=== PATIENT | male | born 1970 | race Caucasian/White ===

== ENCOUNTER 2019-03-25 14:35 | Emergency (ER) | payer BC ==
[2019-03-25 15:26] VITALS: BP 146/78
[2019-03-25] MEDS ORDERED: Albuterol 2.5 MG/3 ML NEB.SOL* (0.083%) INH ONE (15:34)
[2019-03-25] MEDS ORDERED: Ipratropium 0.5MG/2.5ML NEB* 0.5 MG/2.5 ML NEB.SOLN INH ONE (15:34)
--- NOTE | 2019-03-25 15:43 | UC ---
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 - History of Current Complaint Chief Complaint: UCGeneralIllness Stated Complaint: CHEST CONGESTION, COUGH Time Seen by Provider: 03/25/19 15:19 Hx Obtained From: Patient Onset/Duration: Gradual Onset, Lasting Days Timing: Constant Severity Initially: Mild Severity Currently: Moderate Pain Intensity: 1 Pain Scale Used: 0-10 Numeric Character: Cough: Productive Aggravating Factors: Exertion, Deep Breaths Alleviating Factors: Nothing Associated Signs And Symptoms: Positive: Fever - ?, Wheezing Related History: Similar Episode/Dx as: - Bronchitis - Allergies/Home Medications Allergies/Adverse Reactions: Allergies Allergy/AdvReac Type Severity Reaction Status Date / Time amoxicillin [From Augmentin] Allergy Abdominal Verified 03/25/19 15:15 Pain, nausea clavulanic acid Allergy Abdominal Verified 03/25/19 15:15 [From Augmentin] Pain, nausea Home Medications: Home Medications Ibuprofen/Pseudoephedrine HCl [Advil Cold & Sinus] 1 tab PO Q4H PRN 03/25/19 [ History Confirmed 03/25/19] PMH/Surg Hx/FS Hx/Imm Hx Previously Healthy: Yes Respiratory History: Bronchitis GI/ History: Kidney Stones - Surgical History Surgical History: Yes Surgery Procedure, Year, and Place: APP--2003. KIDNEY STONE--2003 - Family History Known Family History: Positive: Hypertension - Social History Alcohol Use: Occasionally Alcohol Amount: 1-2x/month Substance Use Type: None Smoking Status (MU): Never Smoked Tobacco Review of Systems All Other Systems Reviewed And Are Negative: Yes Constitutional: Positive: Fever - possible Skin: Positive: Negative Eyes: Positive: Negative ENT: Positive: Negative Respiratory: Positive: Cough Cardiovascular: Positive: Negative Gastrointestinal: Positive: Negative Genitourinary: Positive: Negative Motor: Positive: Negative Neurovascular: Positive: Negative Musculoskeletal: Positive: Negative Neurological: Positive: Negative Psychological: Positive: Negative Is Patient Immunocompromised?: No Physical Exam Triage Information Reviewed: Yes Appearance: Well-Appearing, No Pain Distress, Well-Nourished Vital Signs: Initial Vital Signs Temp 98.2 F 03/25/19 15:20 Pulse 86 03/25/19 15:20 Resp 16 03/25/19 15:20 BP 146/78 05/20/19 15:20 Pulse Ox 98 03/25/19 15:20 Vital Signs Reviewed: Yes Eyes: Positive: Conjunctiva Clear ENT: Positive: Hearing grossly normal, Uvula midline. Negative: Nasal congestion, Nasal drainage, Trismus, Muffled voice, Hoarse voice, Sinus tenderness Dental Exam: Normal Neck: Positive: Supple, Nontender Respiratory: Positive: No respiratory distress, No accessory muscle use, Wheezing, Other: - bronchospastic cough Cardiovascular: Positive: RRR Abdomen Description: Positive: Nontender Bowel Sounds: Positive: Present Musculoskeletal: Positive: ROM Intact, No Edema Neurological: Positive: Alert Psychological Exam: Normal Skin Exam: Normal Diagnostics - Radiology No standard instances Radiology Interpretation Completed By: Radiologist Summary of Radiographic Findings: no infiltrate Re-Evaluation - Re-Evaluation First Eval Re-Evaluation Time: 16:01 Change: Improved - after neb feels much impreved. Better air movement. Still some wheezing Right base Respiratory Course/Dx - Differential Dx/Diagnosis Provider Diagnosis: Acute bronchitis with bronchospasm, Elevated BP without diagnosis of hypertension Discharge - Sign-Out/Discharge Documenting (check all that apply): Patient Departure All imaging exams completed and their final reports reviewed: Yes - Discharge Plan Condition: Improved Disposition: HOME Prescriptions: Azithromycin TAB* [Zithromax TAB*] 250 mg PO DAILY #6 tab predniSONE [Deltasone 20 MG TAB] 40 mg PO DAILY #14 tab Patient Education Materials: Acute Bronchitis (ED), How to Use a Metered-Dose Inhaler and a Spacer (ED) Referrals: No Primary Care Phys,NOPCP [Primary Care Provider] - Additional Instructions: recheck in 4 days if not better you should find a primary care provider and get BP rechecked in 2-12 weeks - Billing Disposition and Condition Condition: IMPROVED Disposition: Home
[2019-03-25] MEDS ORDERED: Albuterol HFA INHALER* 8 gm MDI INH ONE (16:39)
== END 2019-03-25 17:11 | disposition home or self-care (01) ==
LOC: UCCORT 14:35
DX: J20.9 Acute bronchitis, unspecified (principal); R03.0 Elevated blood-pressure reading, without diagnosis of hypertension; Z88.0 Allergy status to penicillin
CPT/HCPCS: 71046; 99213; A9270-GY; G0463